=== PATIENT | female | born 1965 | race Caucasian/White ===

== ENCOUNTER 2018-01-22 17:28 | Inpatient (IN) | payer OTHER ==
[~2018-01-22] VITALS: Ht 160 cm; Wt 82.3 kg
[2018-01-22 18:59] LABS: BASOPHIL % 0.4 % (0-2); PLATELET COUNT 207 x10^3mcL (130-400); RED CELL DISTRIBUTION WIDTH 14.7 % (11.5-14.5)
[2018-01-22 19:15] LABS: CALCIUM 9.5 mg/dL (8.5-10.1); CARBON DIOXIDE 30.3 mmol/L (21-32); CHLORIDE SERUM 107 mmol/L (98-107); CREATININE SERUM 0.8 mg/dL (0.6-1.0); GFR1 > 60 mL/min; GLUCOSE SERUM 100 mg/dL (74-106); POTASSIUM SERUM 3.9 mmol/L (3.5-5.1); SODIUM SERUM 144 mmol/L (136-145)
[2018-01-22 19:19] LABS: ALBUMIN 3.7 g/dL (3.4-5.0); ALKALINE PHOSPHATASE 81 U/L (46-116); ALT/SGPT 28 U/L (14-59); AST/SGOT 22 U/L (15-37); BILIRUBIN TOTAL 0.33 mg/dL (0.20-1.00); MAGNESIUM 2.1 mg/dL (1.8-2.4); TOTAL PROTEIN, SERUM 7.9 g/dL (6.4-8.2)
[2018-01-22 21:04] VITALS: BP 179/94
[2018-01-22 21:04] LABS: FREE T4 0.95 ng/dL (0.76-1.46); FREE THYROXINE INDEX 2.6 ug/dL (1.4-4.5); T3 TOTAL 1.15 ng/mL; T4(THYROXINE) 7.2 ug/dL (4.7-13.3)
[2018-01-22 23:44] VITALS: BP 128/76
[2018-01-23 03:59] LABS: microscopic required? YES; urine erythrocyte 1+ (NEGATIVE)
[2018-01-23 04:08] LABS: AMPHETAMINE QUAL UR NONE DETECTED (See below)
[2018-01-23 05:08] VITALS: BP 125/84
[2018-01-23 07:14] LABS: CHOLESTEROL/HDL RATIO 3.1
[2018-01-23 09:44] VITALS: BP 123/87
[2018-01-23 13:58] VITALS: BP 123/70
== END 2018-01-23 15:05 | disposition left against medical advice (07) | DRG 69 ==
LOC: ED 17:28 → DU 20:16
PROVIDERS: Emergency Medicine; Family Medicine
DX: G45.9 Transient cerebral ischemic attack, unspecified (principal); I10 Essential (primary) hypertension; E66.9 Obesity, unspecified; G90.8 Other disorders of autonomic nervous system; Z68.32 Body mass index [BMI] 32.0-32.9, adult
CPT/HCPCS: 83880; 84439; J7030; Q0092